=== PATIENT | female | born 1990 ===

== ENCOUNTER 2023-05-28 08:10 | Emergency (ER) | payer BC, MEDICAID, SELFPAY ==
--- NOTE | 2023-05-28 08:12 | ED_ITS ---
HPI - General Adult 2 General: Chief complaint: General Medical Stated complaint: body aches Time Seen by Provider: 05/28/23 08:11 Source: patient Mode of arrival: ambulatory History of Present Illness: 32-year-old female presents emergency ro om complaining of bodyaches and chills for about the last week. She has not had a rash she has had a slight nonproductive cough she does relate that she has some allergies and has been working on a house doing some demolition so she had attributed to that low-grade subjective fever. No vomiting no diarrhea no dysuria urgency or frequency. She does states that she had a tick bite a week prior to all of this beginning. She has not had a rash that she has noted with it. Onset (ago): week(s) (1) Quality: aching Relieving factors: none Exacerbating factors: none Associated symptoms: Reports decreased appetite, fevers/chills, headache(s), malaise and short of breath; Deny chest pain, confusion, cough, diaphoresis, dyspnea, nausea, rash, palpitations, seizures, syncope, vomiting or weakness Review of Systems 2 Const: Reports: malaise; Denies: fever(s), chills or diaphoresis Card: Denies: chest pain, palpitations or syncope Resp: Denies: dyspnea GI: Denies: abdominal pain, nausea or vomiting : Denies: dysuria, urinary frequency or urinary urgency Musc: Denies: neck pain or back pain Skin/Breast: Denies: rash Neuro: Reports: headache(s); Denies: confusion PFSH ED 2 PFSH: Medical History Anxiety Renal agenesis Surgical History Status post hysteroscopic resection of uterine septum History of appendectomy H/O section Social History Smoking and tobacco/nicotine status: never used tobacco/nicotine Alcohol intake: never Substance/Drug Use: never Physical Exam 2 Const: COMMON NORMALS: no acute distress GENERAL APPEARANCE: cooperative and comfortable ORIENTATION/CONSCIOUSNESS: Yes awake, Yes oriented to person, Yes oriented to place and Yes oriented to time HENMT: COMMON NORMALS: normocephalic, atraumatic and hearing grossly normal bilaterally HEAD & SCALP: normocephalic and atraumatic Resp: COMMON NORMALS: normal respiratory effort, No retractions, No use of accessory muscles and clear to auscultation bilaterally AUSCULTATION: clear to auscultation bilaterally Cardio: COMMON NORMALS: regular rate, regular rhythm and No murmurs present (Cardio) RATE: regular rate RHYTHM: regular rhythm GI: COMMON NORMALS: Soft to palpation and No hepatosplenomegaly present A USCULTATION: Yes normoactive bowel sounds PALPATION: Yes Soft to palpation, No Tenderness to palpation present (GI), No Guarding due to palpation present (GI) and Yes No hepatosplenomegaly present Extremity: COMMON NORMALS: normal to inspection, capillary refill normal, no clubbing, cyanosis or edema, no calf tenderness and no pedal edema Neuro: SENSORIUM/ORIENTATION: Yes oriented to person, Yes oriented to place and Yes oriented to time Skin: COMMON NORMALS: no rashes or lesions noted GENERAL SKIN EXAM: no rashes or lesions noted Course 2 Vital Signs: Vital signs: Vital Signs Temperature 97.5 F L 05/28/23 08:24 Pulse Rate 74 05/28/23 09:45 Respiratory Rate 18 05/28/23 09:45 Blood Pressure 123/83 05/28/23 09:45 Pulse Oximetry 100 05/28/23 09:45 Oxygen Delivery Me thod Room Air 05/28/23 08:24 MDM - General Adult Medical Decision Making Lungs are clear on auscultation chest x-ray not done based on physical exam findings. Liver enzymes mildly elevated suspect her history of the tick bite is where her symptoms are coming from. No biliary colic symptoms treat for tickborne illness started on doxycycline. Recommend she follow-up with her primary care doctor later this week regarding a tick panel and possibly repeating the liver enzymes. Recheck if she has any worsening symptoms. Medical Records I reviewed the patient's medical records. Lab Data I reviewed the patient's lab results. 05/28/23 08:42 05/28/23 08:42 Laboratory Results WBC 8.79 10^3/uL (3.29-11.43) 05/28/23 08:42 RBC 4.87 10^6/uL (3.85-5.65) 05/28/23 08:42 Hgb 13.00 g/dL (11.27-16.99) 05/28/23 08:42 Hct 40.9 % (36-47) 05/28/23 08:42 MCV 84.0 fl (85-98) L 05/28/23 08:42 MCH 26.7 pg (27-33) L 05/28/23 08:42 MCHC 31.8 g/dL (30-55) 05/28/23 08:42 RDW 13.8 % (12.1-15.1) 05/28/23 08:42 Plt Count 242 10^3/cmm (157-399) 05/28/23 08:42 MPV 10.6 fL (7.4-10.4) H 05/28/23 08:42 Neut % (Auto) 59.4 % 05/28/23 08:42 Lymph % (Auto) 30.5 % 05/28/23 08:42 [place] % (Auto) 9.0 % 05/28/23 08:42 Eos % (Auto) 0.5 % 05/28/23 08:42 Baso % (Auto) 0.3 % 05/28/23 08:42 Neut # (Auto) 5.22 10^3/uL (1.8-7.7) 05/28/23 08:42 Lymph # (Auto) 2.7 10^3/uL (0.8-4.8) 05/28/23 08:42 [place] # (Auto) 0.8 10^3/uL (0.2-0.9) 05/28/23 08:42 Eos # (Auto) 0.0 10^3/uL (0.0-0.8) 05/28/23 08:42 Baso # (Auto) 0.0 10^3/uL (0.0-0.1) 05/28/23 08:42 Nucleated RBC % (auto) 0 % 05/28/23 08:42 Nucleated RBCs # 0.0 /100WBC 05/28/23 08:42 Sodium 138 mmol/L (136-145) 05/28/23 08:42 Potassium 4.1 mmol/L (3.5-5.1) 05/28/23 08:42 Chloride 105 mmol/L (98-107) 05/28/23 08:42 Carbon Dioxide 23 mmol/L (22-29) 05/28/23 08:42 Anion Gap 14.1 (5-19) 05/28/23 08:42 BUN 18 mg/dL (6-20) 05/28/23 08:42 Creatinine 0.7 mg/dL (0.5-0.9) 04 08:42 GFR Calculation 97.0 mL/min (90-130) 05/28/23 08:42 Glucose 95 mg/dL (65-115) 05/28/23 08:42 Calculated Osmolality 288 mOsm/kg (285-295) 05/28/23 08:42 Calcium 9.3 mg/dL (8.5-10.5) 05/28/23 08:42 Total Bilirubin 0.2 mg/dL (0.15-1.2) 04 08:42 AST 89 U/L (0-32) H 05/28/23 08:42 ALT 181 U/L (0-33) H 05/28/23 08:42 Alkaline Phosphatase 143 U/L (35-105) H 05/28/23 08:42 Total Protein 7.7 g/dL (6.6-8.7) 05/28/23 08:42 Albumin 3.8 g/dL (3.5-5.2) 05/28/23 08:42 Globulin 3.9 g/dL (1.3-4.6) 05/28/23 08:42 HCG, Qual Negative (Negative) 05/28/23 08:42 Influenza Type A Ag negative (Negative) 05/28/23 08:33 Influenza Type B Ag negative (Negative) 05/28/23 08:33 No radiology studies performed this visit Discharge Plan Discharge Patient Disposition: Home Clinical Impression: Tick borne fever Prescriptions: New doxycycline hyclate 100 mg capsule 100 mg PO BID 21 Days Qty: 42 0RF No Action citalopram 40 mg tablet 40 mg PO DAILY Qty: 90 0RF Discharge Orders: Discharge ED (Routine); Ordered 05/28/23 Ordered By: Taurus Barker Referrals: Palak Mccann DO [Primary Care Provider] - Mayo Jackman FNP [Family Provider] - Discharge Diet: Usual diet Discharge Activity: Increase activity as tolerated Patient Instructions: Tick Bite (ED), Opioid Safety, Pain Management Activity Restrictions/Additional Instructions: Thank you for choosing [facility] for your healthcare needs today. Please realize this is an emergency room and that we are providing you with a medical screening exam and this may not be complete and all inclusive of all the testing and or work up that you may need to determine your ailment or severity of your illness. It is very important that you follow up as instructed or that you return to the Emergency Department should you have concerns or if your condition changes or worsens in any way. You were seen today for myalgias. Given your history of recent tick bite suspect he may have a tickborne illness. A tick panel was done but will take a couple of days for it to be resulted. Recommend you start doxycycline twice daily. Follow-up with your primary care doctor regarding the tick panel results. Coding Level of Care Code ED Gardening Manager for Fidelina Wilson
[2023-05-28 08:24] VITALS: BP 138/82; PULSE 80; TEMP 36.4; O2SAT 98; BMI 28.1
[2023-05-28] MEDS: sodium chloride 0.9% 1,000 ML 999 ML IV (08:46)
[2023-05-28 08:50] LABS: Basophils % 0.3 %; Eosinophils % 0.5 %; Hematocrit 40.9 % (36-47); Lymphocytes # 2.7 10^3/uL (0.8-4.8); Lymphocytes % 30.5 %; Mean Corpuscular HGB Conc 31.8 g/dL (30-55); Mean Corpuscular Hemoglobin 26.7 pg (27-33); Mean Platelet Volume 10.6 fL (7.4-10.4); Monocytes # 0.8 10^3/uL (0.2-0.9); Neutrophils # 5.22 10^3/uL (1.8-7.7); Neutrophils % 59.4 %; Nucleated Red Blood Cells % 0 %; Platelet Count 242 10^3/cmm (157-399); Red Blood Count 4.87 10^6/uL (3.85-5.65); Red Cell Distribution Width 13.8 % (12.1-15.1); White Blood Count 8.79 10^3/uL (3.29-11.43)
[2023-05-28 09:12] LABS: Alanine Aminotransferase 181 U/L (0-33); Albumin Level 3.8 g/dL (3.5-5.2); Alkaline Phosphatase 143 U/L (35-105); Anion Gap 14.1 (5-19); Aspartate Amino Transferase 89 U/L (0-32); Blood Urea Nitrogen 18 mg/dL (6-20); Calcium 9.3 mg/dL (8.5-10.5); Carbon Dioxide 23 mmol/L (22-29); Chloride 105 mmol/L (98-107); Creatinine Clr Calc Pharmacy 126.8057; Globulin 3.9 g/dL (1.3-4.6); Glucose 95 mg/dL (65-115); Osmolality Calculated 288 mOsm/kg (285-295); Potassium 4.1 mmol/L (3.5-5.1); Sodium 138 mmol/L (136-145); Total Bilirubin 0.2 mg/dL (0.15-1.2); Total Protein 7.7 g/dL (6.6-8.7)
[2023-05-28 09:12] LABS: Influenza A by IFA negative (Negative); Influenza B by IFA negative (Negative)
[2023-05-28 09:45] VITALS: BP 123/83; PULSE 74; RESP 18; O2SAT 100
[2023-05-28 10:06] LABS: HCG, Serum Qual Negative (Negative)
[2023-05-28 10:39] LABS: Adenovirus Not Detected (NOT DETECT); Chlamydia Pneumoniae Not Detected (NOT DETECT); Coronavirus 229E,HKU1,NL63,OC4 Not Detected (NOT DETECT); Human Metapneumovirus Not Detected (NOT DETECT); Human Rhinovirus/Enterovirus Not Detected (NOT DETECT); Influenza A Not Detected (NOT DETECT); Influenza A H1 Not Detected (NOT DETECT); Influenza A H1-2009 Not Detected (NOT DETECT); Influenza A H3 Not Detected (NOT DETECT); Influenza B Not Detected (NOT DETECT); Mycoplasma Pneumoniae Not Detected (NOT DETECT); Parainfluenza Virus Type 1 Not Detected (NOT DETECT); Parainfluenza Virus Type 2 Not Detected (NOT DETECT); Parainfluenza Virus Type 3 Not Detected (NOT DETECT); Parainfluenza Virus Type 4 Not Detected (NOT DETECT); Respiratory Syncytial Virus A Not Detected (NOT DETECT); Respiratory Syncytial Virus B Not Detected (NOT DETECT); SARS-COV-2 Not Detected (NOT DETECT)
[2023-05-29 12:14] LABS: Lyme AB Screen <0.90 index
[2023-05-31 16:58] LABS: RMSF IGG NOT DETECTED; RMSF IGM NOT DETECTED
[2023-06-02 21:25] LABS: E. Chaffeensis AB IGG <1:64; E. Chaffeensis AB IGM <1:20
== END 2023-05-28 09:47 | disposition home or self-care (01) ==
PROVIDERS: Emergency Provider Family Medicine; Family Provider Nurse Practitioner Family; PCP Family Medicine
DX: A93.8 Other specified arthropod-borne viral fevers (principal)
CPT/HCPCS: 80053; 84703; 85025; 86618; 86666; 86757; 87635; 87804; 96360; 99284; J7030